=== PATIENT | male | born 1990 | race Caucasian/White ===

== ENCOUNTER 2021-03-21 14:42 | Observation (INO) ==
[2021-03-21 16:22] LABS: Basophils # (auto) 0.03 K/uL (0-0.2); Basophils % (auto) 0.3 %; Eosinophils # (auto) 0.84 K/uL (0-0.5); Eosinophils % (auto) 7.1 %; Hematocrit (blood only) 45.6 % (42-52); Hemoglobin 15.7 g/dL (14.0-18.0); Immature Granulocytes # (auto) 0.21 K/uL (0.00-0.02); Immature Granulocytes % (auto) 1.8 %; Lymphocytes # (auto) 1.57 K/uL (1.2-3.4); Lymphocytes % (auto) 13.2 %; Mean Corpuscular Hemoglobin 31.5 pg (25-34); Mean Corpuscular Hgb Conc 34.4 g/dL (32-36); Mean Corpuscular Volume 91.6 fL (80-100); Monocytes # (auto) 1.01 K/uL (0.11-0.59); Monocytes % (auto) 8.5 %; Neutrophils # (auto) 8.19 K/uL (1.4-6.5); Neutrophils % (auto) 69.1 %; Platelet Count 308 K/uL (130-400); RDW Coefficient of Variation 12.9 % (11.5-14.5); RDW Standard Deviation 42.9 fL (36.4-46.3); Red Blood Count 4.98 M/uL (4.7-6.1); White Blood Count 11.85 K/uL (4.8-10.8)
[2021-03-21 16:40] LABS: Albumin Level 4.3 gm/dl (3.4-5.0); BUN Creatinine Ratio 10.8 (10-20); Calcium 9.6 mg/dl (8.5-10.1); Creatinine Clr Calc Pharmacy 82.1 ml/min; Est GFR (African American) 80.2 ml/min; Est GFR (Non-African American) 69.2 ml/min; Potassium 4.1 mmol/L (3.5-5.1)
[2021-03-21 16:49] LABS: Albumin Globulin Ratio 1.2 (0.9-2); Bilirubin,Total 0.7 mg/dl (0.2-1); Globulin 3.6 gm/dl (2.5-4.0); Total Protein 7.9 gm/dl (6.4-8.2)
[2021-03-21] MEDS ORDERED: SODIUM CHLORIDE 0.9% 1000ML 1,000 ML IV ONE (17:17)
--- NOTE | 2021-03-21 17:25 | Emergency Department Note ---
Impression & Plan Terminal ileitis ED Provider Note CHIEF COMPLAINT: Diffuse abdominal pain, nausea/vomiting/diarrhea HISTORY OF PRESENTING ILLNESS: This is a 30-year-old male who presents to the emergency department by private vehicle with complaint of diffuse abdominal pain, nausea, vomiting, and diarrhea that has been ongoing for the past 2 weeks. Patient states his symptoms started after eating chili at a restaurant which he thought may have given him food poisoning, but his symptoms have not gotten any better. He states that he is having 10-15 episodes of watery diarrhea a day. He denies any bloody or black stools. He has had vomiting intermittently but overall has been able to tolerate food and fluids. He denies any bloody or bilious emesis. He denies any fevers or chills. He denies urinary symptoms. He states that the abdominal pain is diffuse but mostly in the center around his bellybutton, crampy in nature and occasionally very sharp, has been intermittent, but has been constant today and he rates the pain 9/10. He has tried taking Tums without much improvement. He states that he tried to get an appointment with his primary care provider but they could not get him in until next month and his symptoms got worse today which prompted him to come to the ER. He denies any chest pain, chest tightness, shortness of breath, dizziness or syncope, back pain, headaches, or unusual rash. REVIEW OF SYSTEMS: A complete 10 point review of systems was reviewed with the patient with pertinent positives and negatives as per history of present illness. All else were negative. PAST MEDICAL HISTORY: No significant past medical or surgical history SOCIAL HISTORY: Lives at home, he is a current everyday smoker ALLERGIES: Reviewed in chart and with the patient PHYSICAL EXAM: CONSTITUTIONAL: Pleasant and cooperative. Nontoxic-appearing and in no acute distress. Well appearing and well nourished. HEENT: Normocephalic, atraumatic. Pharynx normal. NECK: Supple, full active range of motion without discomfort. RESPIRATORY: Clear to auscultation bilaterally with no wheezing, crackles, rhonchi or stridor. Equal expansion bilaterally. CARDIOVASCULAR: Regular rate and rhythm with no murmurs, rubs or gallops. Normal peripheral perfusion. No edema. GASTROINTESTINAL: Diffuse tenderness to palpation throughout the abdomen, most tender in the periumbilical region and right lower quadrant, no rebound tenderness or guarding. Abdomen is soft and nondistended. No palpable masses or HSM. Bowel sounds present in all quadrants. No CVA tenderness bilaterally. MUSCULOSKELETAL: Full range of motion of all joints without discomfort. INTEGUMENTARY: No rash or other significant dermatologic conditions noted. NEUROLOGIC: Alert and oriented X 4 with normal affect. Normal strength and sensation in all 4 extremities. Normal speech. Normal gait observed. ED COURSE AND MEDICAL DECISION MAKING: CC: Patient presenting with complaint of diffuse abdominal pain, nausea/vomiting/diarrhea DIFFERENTIAL DIAGNOSIS: Includes, but not limited to gastroenteritis, infectious colitis, C. difficile infection, appendicitis, mesenteric adenitis, infections, diverticulitis, UTI, small bowel obstruction, inflammatory bowel disease, renal colic, PUD, pancreatitis, biliary pathology, hernia, volvulus, constipation, as well as other pathologies. INTERPRETATION OF LABS: Mild leukocytosis, no anemia, normal platelets, no significant electrolyte abnormalities, normal renal function, normal liver enzymes and lipase. UA negative. C. difficile negative. Stool culture pending. MEDICATION RECONCILIATION: I attest that I have personally reviewed the patient's current medication list. INITIAL VITAL SIGNS REVIEW: I reviewed the patient's initial vital signs and interpret them as follows: T: Afebrile; BP: Normotensive; HR: Within normal limits; RR: Within normal limits; Pulse Ox: Within normal limits on room air. MDM SUMMARY: Patient was evaluated at bedside, history and physical exam performed. Patient is alert and oriented, in no acute distress, resting calmly in stre tcher. He is afebrile and nontoxic-appearing and hemodynamically stable. Abdomen is tender to palpation diffusely, but most tender towards the periumbilical and right side of the abdomen, no acute abdomen. He does not appear to be significantly dehydrated clinically. Orders were placed for labs, UA, C. difficile toxin, stool culture, IV fluid bolus for hydration as precaution, CT abdomen/pelvis with IV contrast to evaluate for abdominal pain and diarrhea. Patient discussed with Dr. Springer, who agrees with my assessment, plan, and disposition. Labs and imaging reviewed, labs were notable for mild leukocytosis, no other significant abnormalities. C. difficile negative. CT imaging reviewed, concerning for bowel wall thickening and mesenteric edema as well as some distended loops of small bowel concerning for developing small bowel obstruction. Normal appendix. Given the findings of a possible bowel obstruction, I did speak with Dr. Angela, general surgery. He reviewed the patient's findings with me and did not feel that the patient had a true bowel obstruction, but was happy to follow with the patient. I requested that the patient be admitted to the hospitalist service, Dr. Anshu lerma, the patient will be admitted. He may benefit from GI consultation as well. Patient reassessed multiple times throughout ED stay, he has remained hemodynamically stable and afebrile and his pain is well controlled. The patient was updated on all results and plan for admission, all questions w ere answered to the best my ability and the patient was comfortable with this plan. The patient was stable at time of admission. The chart was completed utilizing [employer] Speech voice recognition software. Grammatical errors, random word insertions, pronoun errors, and incomplete sentences are an occasional consequence of this system due to software limitations, ambient noise, and hardware issues. Any formal questions or concerns about the content, text, or information contained within the body of this dictation should be directly addressed to the nurse practitioner for clarification. 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 Beliefs That Will Affect Care: None Current Living Situation: Family Feels Safe at Home: Yes Safety Concerns: Feels Safe At This Time Allergies Allergies Allergy/AdvReac Type Severity Reaction Status Date / Time Penicillins Allergy Unknown unknown rx Verified 03/21/21 17:33 as a child Home Meds Home Medications Medication Instructions Recorded Confirmed No Known Home Medications 03/21/21 03/21/21 Results & Data (ED) Vital Signs Vital Signs - 24 hr 03/21/21 15:15 03/21/21 18:45 Temperature 36.2 C L Temperature Source Temporal Artery Scan Pulse Rate 82 Pulse Rate [Finger] 77 Pulse Rhythm [Finger] Regular Pulse Strength [Finger] Normal Respiratory Rate 16 18 Respiratory Effort / Characteristics Non-Labored Spontaneous Respiratory Depth Normal Respiratory Pattern Regular Blood Pressure 138/93 Blood Pressure [Right Arm] 124/69 Blood Pressure Mean 108 Blood Pressure Mean [Right Arm] 87 Blood Pressure Position [Right Arm] Semi-fowlers Pulse Oximetry 98 100 Oxygen Delivery Method Room Air Sepsis Recent Fever Within 48 Hours No Sepsis New/Unexplained Change in Mental Status No Sepsis Action Taken by Nursing No Action Required Laboratory Data Result diagrams: 03/21/21 16:10 03/21/21 16:10 Lab Results 03/21/21 03/21/21 03/21/21 Range/Units 16:10 16:10 20:40 WBC 11.85 H (4.8-10.8) K/uL RBC 4.98 (4.7-6.1) M/uL Hgb 15.7 (14.0-18.0) g/dL Hct 45.6 (42-52) % MCV 91.6 (80-100) fL MCH 31.5 (25-34) pg MCHC 34.4 (32-36) g/dL RDW Std Deviation 42.9 (36.4-46.3) fL RDW Coeff of Tal 12.9 (11.5-14.5) % Plt Count 308 (130-400) K/uL MPV 10.0 (7.4-10.4) fL Immature Gran % (Auto) 1.8 % Neut % (Auto) 69.1 % Lymph % (Auto) 13.2 % [place] % (Auto) 8.5 % Eos % (Auto) 7.1 % Baso % (Auto) 0.3 % Neut # (Auto) 8.19 H (1.4-6.5) K/uL Lymph # (Auto) 1.57 (1.2-3.4) K/uL [place] # (Auto) 1.01 H (0.11-0.59) K/uL Eos # (Auto) 0.84 H (0-0.5) K/uL Baso # (Auto) 0.03 (0-0.2) K/uL Immature Gran # (Auto) 0.21 H (0.00-0.02) K/uL Sodium 138 (136-145) mmol/L Potassium 4.1 (3.5-5.1) mmol/L Chloride 108 H (98-107) mmol/L Carbon Dioxide 29 (21-32) mmol/L Anion Gap 1.0 L (3-11) BUN 15 (7-18) mg/dl Creatinine 1.37 (0.6-1.4) mg/dl Est Cr Clr Drug Dosing 82.1 ml/min Est GFR ( Amer) 80.2 ml/min Est GFR (Non-Af Amer) 69.2 ml/min BUN/Creatinine Ratio 10.8 (10-20) Glucose 97 (70-99) mg/dl Calcium 9.6 (8.5-10.1) mg/dl Total Bilirubin 0.7 (0.2-1) mg/dl AST 19 (15-37) U/L ALT 33 (12-78) U/L Alkaline Phosphatase 89 (45-117) U/L Total Protein 7.9 (6.4-8.2) gm/dl Albumin 4.3 (3.4-5.0) gm/dl Globulin 3.6 (2.5-4.0) gm/dl Albumin/Globulin Ratio 1.2 (0.9-2) Lipase 98 (73-393) U/L COVID-19 Eval Order Covid19 at [facility] SARS-CoV-2 (PCR) (Negative) 03/21/21 Range/Units 20:40 WBC (4.8-10.8) K/uL RBC (4.7-6.1) M/uL Hgb (14.0-18.0) g/dL Hct (42-52) % MCV (80-100) fL MCH (25-34) pg MCHC (32-36) g/dL RDW Std Deviation (36.4-46.3) fL RDW Coeff of Tal (11.5-14.5) % Plt Count (130-400) K/uL MPV (7.4-10.4) fL Immature Gran % (Auto) % Neut % (Auto) % Lymph % (Auto) % [place] % (Auto) % Eos % (Auto) % Baso % (Auto) % Neut # (Auto) (1.4-6.5) K/uL Lymph # (Auto) (1.2-3.4) K/uL [place] # (Auto) (0.11-0.59) K/uL Eos # (Auto) (0-0.5) K/uL Baso # (Auto) (0-0.2) K/uL Immature Gran # (Auto) (0.00-0.02) K/uL Sodium (136-145) mmol/L Potassium (3.5-5.1) mmol/L Chloride (98-107) mmol/L Carbon Dioxide (21-32) mmol/L Anion Gap (3-11) BUN (7-18) mg/dl Creatinine (0.6-1.4) mg/dl Est Cr Clr Drug Dosing ml/min Est GFR ( Amer) ml/min Est GFR (Non-Af Amer) ml/min BUN/Creatinine Ratio (10-20) Glucose (70-99) mg/dl Calcium (8.5-10.1) mg/dl Total Bilirubin (0.2-1) mg/dl AST (15-37) U/L ALT (12-78) U/L Alkaline Phosphatase (45-117) U/L Total Protein (6.4-8.2) gm/dl Albumin (3.4-5.0) gm/dl Globulin (2.5-4.0) gm/dl Albumin/Globulin Ratio (0.9-2) Lipase (73-393) U/L COVID-19 Eval Order SARS-CoV-2 (PCR) NEGATIVE (Negative) Administered Medications Potassium Chloride/Sodium Chloride (Normal Saline W/20 Meq Kcl) 20 meq in 1,000 mls @ 100 mls/hr IV .Q10H SILVIA Stop: 04/20/21 22:14 Last Admin: 03/21/21 22:36 Dose: 100 mls/hr Documented by: [id number] Discontinued Medications Sodium Chloride (Nss 1000ml) 1,000 mls @ 999 mls/hr IV .Q1H1M ONE Stop: 03/21/21 18:17 Last Infusion: 03/21/21 19:55 Dose: 0 mls/hr Documented by: [id number] Admin: 03/21/21 18:39 Dose: 999 mls/hr Documented by: [id number] Ioversol (Optiray 320 100ml) 95 ml IV ONCE ONE Stop: 03/21/21 18:27 Last Admin: 03/21/21 18:26 Dose: 95 ml Documented by: [id number] Imaging Data Radiologist's Impression: Abdomen/Pelvis CT 03/21/21 17:[address] WITH IV CONTRAST CT DOSE: 267.36 mGy.cm HISTORY: mid abd pain, n/v/d TECHNIQUE: Multiaxial CT images of the abdomen and pelvis were performed following the use of intravenous contrast. A dose lowering technique was ut ilized adhering to the principles of ALARA. COMPARISON STUDY: None. FINDINGS: The lung bases are clear. No pneumoperitoneum. No pneumatosis. No frac tures within the visualized osseous structures. The liver, gallbladder, pancreas, spleen, adrenal glands, and kidneys are unremarkable. No hydronephrosis. The main portal vein is patent. No retroperitoneal lymphadenopathy. Subcentimeter mesenteric lymph nodes do not meet CT criteria for pathologic involvement. The bladder is unremarkable. Mildly dilated gas- filled loops of jejunum within the left side the abdomen. These measure up to 3.4 cm in diameter. Normal appendix. Thickening versus underdistention of the ileal loops within the right lower quadrant. There appears a mild mesenteric edema. These ileal loops are decompressed. No clear transition point between the mildly dilated jejunal loops and decompressed ileal loops. Therefore, this could represent an ileus versus low-grade partial small bowel obstruction from the thickened ileal loops. Trace pelvic free fluid. IMPRESSION: 1. Underdistended ileal loops within the right lower quadrant and lower abdomen which appear to be slightly thickened and demonstrate mild surrounding mese nteric edema. The more proximal jejunal loops within the left side of the abdomen are gas-filled and mildly dilated. There is no clear transition point. Therefore, these findings could represent a nonspecific ileitis resulting in a partial small bowel obstruction given the distended jejunal loops. Consider follow-up abdomen and pelvis CT with the patient's symptoms continued to progress to exclude the possibility of a bowel obstruction. 2. Normal appendix. 3. No hydronephrosis. ACT 112: Negative or not required by law. Electronically signed by: Jim Godoy M.D. 03/21/2021 6:45 PM Discharge Plan Visit Data Chief Complaint: Abdominal Pain Stated Complaint: BAD ABD PAIN FOR TWO WEEKS ED Provider: Jack Springer ED Midlevel Provider: Radha Huynh Discharge Problem: Terminal ileitis Patient Disposition: Admitted As Inpatient Condition: Good Discharge Instructions Interventions: ED Discharge Assessment Last Done: 03/21/21 21:58 Discharge Problem: Terminal ileitis Qualifiers: Digestive disease complication type: unspecified complication Qualified Code(s): K50.019 - Crohn's disease of small intestine with unspecified complications
[2021-03-21] MEDS ORDERED: OPTIRAY 320 100ml IV ONE (18:26)
--- NOTE | 2021-03-21 18:46 | CT Scan Report ---
ABDOMEN AND PELVIS CT WITH IV CONTRAST CT DOSE: 267.36 mGy.cm HISTORY: mid abd pain, n/v/d TECHNIQUE: Multiaxial CT images of the abdomen and pelvis were performed following the use of intrave nous contrast. A dose lowering technique was utilized adhering to the principles of ALARA. COMPARISON STUDY: None. FINDINGS: The lung bases are clear. No pneumoperitoneum. No pneumatosis. No fractures within the visu alized osseous structures. The liver, gallbladder, pancreas, spleen, adrenal glands, and kidneys are unremarkable. No hydronephrosis. The main portal vein is patent. No retroperitoneal lymphadenopathy. Subcentimeter mesenteric lymph nodes do not meet CT criteria for pathologic involvement. The bladder is unremarkable. Mildly dilated gas-filled loops of jejunum within the left side the abdomen. These m easure up to 3.4 cm in diameter. Normal appendix. Thickening versus underdistention of the ileal loop s within the right lower quadrant. There appears a mild mesenteric edema. These ileal loops are decom pressed. No clear transition point between the mildly dilated jejunal loops and decompressed ileal lo ops. Therefore, this could represent an ileus versus low-grade partial small bowel obstruction from t he thickened ileal loops. Trace pelvic free fluid. IMPRESSION: 1. Underdistended ileal loops within the right lower quadrant and lower abdomen which appear to be sl ightly thickened and demonstrate mild surrounding mesenteric edema. The more proximal jejunal loops w ithin the left side of the abdomen are gas-filled and mildly dilated. There is no clear transition po int. Therefore, these findings could represent a nonspecific ileitis resulting in a partial small bow el obstruction given the distended jejunal loops. Consider follow-up abdomen and pelvis CT with the p atient's symptoms continued to progress to exclude the possibility of a bowel obstruction. 2. Normal appendix. 3. No hydronephrosis. ACT 112: Negative or not required by law. Electronically signed by: Jim Godoy M.D. 03/21/2021 6:45 PM
--- NOTE | 2021-03-21 20:13 | Surgery Consultation ---
Date of Consultation March 21, 2021 Assessment & Plan (1) Terminal ileitis: 30-year-old male with 2-week history of abdominal pain with nausea, vomiting, and diarrhea with CT findings consistent with a terminal ileitis. Given the fact that he is passing flatus and having watery bowel movements I do not feel this represents an obstruction. This may be of infectious or inflammatory etiology, possibly Crohn's. No surgical intervention indicated Disposition per emergency department medicine Recommend GI evaluation as inpatient or outpatient Surgery will follow peripherally (2) Nausea & vomiting: (3) Diarrhea: (4) Abdominal pain: History of Present Illness History of Present Illness 30-year-old male presented to the emergency department with abdominal pain, nausea, and diarrhea. This started about 2 weeks ago after eating some chili. He typically does not tolerate hamburger meat very well. He thought he had food poisoning. The symptoms persisted. Today his pain was much worse. The diarrhea has been watery and 10-15 movements per day. He reports a history of intermittent bloating in the past. He denies any fevers. No sick contacts. No personal or family history of Crohn's disease. No prior GI evaluations or colonoscopies. He is otherwise healthy. No prior abdominal surgery. Allergies Allergy/AdvReac Type Severity Reaction Status Date / Time Penicillins Allergy Unknown unknown rx Verified 03/21/21 17:33 as a child Home Medications Medication Instructions Recorded Confirmed Type No Known Home Medications 03/21/21 03/21/21 History Patient History Medical History (Updated 03/21/21 @ 20:12 by David Angela DO, FACS) Abdominal pain Diarrhea Nausea & vomiting No chronic diseases present Terminal ileitis Surgical History No significant past surgical history Social History Smoking Status: Current every day smoker Tobacco Type: Cigarettes Preferred Language: Latvian Feels Safe at Home: Yes Review of Systems Review of Systems: All systems reviewed & are unremarkable except as noted in HPI & below Physical Exam Constitutional: WD/WN, vitals as above no acute distress Respiratory: normal respiratory effort, lungs clear to auscultation Cardiovascular: RRR, no murmur, no edema Gastrointestinal (Abdomen): normal bowel sounds, soft, nontender, no hepatosplenomegaly Results & Data ([facility]) Vital Signs (Past 12 Hours) Vital Signs Temp Pulse Pulse Resp BP BP Pulse Ox 03/21/21 18:45 77 18 124/69 100 03/21/21 15:15 36.2 C L 82 16 138/93 98 Laboratory Results Laboratory Results - last 24 hr 03/21/21 03/21/21 16:10 16:10 WBC 11.85 H RBC 4.98 Hgb 15.7 Hct 45.6 MCV 91.6 MCH 31.5 MCHC 34.4 RDW Std Deviation 42.9 RDW Coeff of Tal 12.9 Plt Count 308 MPV 10.0 Immature Gran % (Auto) 1.8 Neut % (Auto) 69.1 Lymph % (Auto) 13.2 [place] % (Auto) 8.5 Eos % (Auto) 7.1 Baso % (Auto) 0.3 Neut # (Auto) 8.19 H Lymph # (Auto) 1.57 [place] # (Auto) 1.01 H Eos # (Auto) 0.84 H Baso # (Auto) 0.03 Immature Gran # (Auto) 0.21 H Sodium 138 Potassium 4.1 Chloride 108 H Carbon Dioxide 29 Anion Gap 1.0 L BUN 15 Creatinine 1.37 Est Cr Clr Drug Dosing 82.1 Est GFR ( Amer) 80.2 Est GFR (Non-Af Amer) 69.2 BUN/Creatinine Ratio 10.8 Glucose 97 Calcium 9.6 Total Bilirubin 0.7 AST 19 ALT 33 Alkaline Phosphatase 89 Total Protein 7.9 Albumin 4.3 Globulin 3.6 Albumin/Globulin Ratio 1.2 Lipase 98 Diagnostic Findings I personally reviewed and interpreted the CT scan and feel this represents an ileitis with no evidence of obstruction. ABDOMEN AND PELVIS CT WITH IV CONTRAST CT DOSE: 267.36 mGy.cm HISTORY: mid abd pain, n/v/d TECHNIQUE: Multiaxial CT images of the abdomen and pelvis were performed following the use of intravenous contrast. A dose lowering technique was utilized adhering to the principles of ALARA. COMPARISON STUDY: None. FINDINGS: The lung bases are clear. No pneumoperitoneum. No pneumatosis. No fractures within the visualized osseous structures. The liver, gallbladder, pancreas, spleen, adrenal glands, and kidneys are unremarkable. No hydronephrosis. The main portal vein is patent. No retroperitoneal lymphadenopathy. Subcentimeter mesenteric lymph nodes do not meet CT criteria for pathologic involvement. The bladder is unremarkable. Mildly dilated gas- filled loops of jejunum within the left side the abdomen. These measure up to 3.4 cm in diameter. Normal appendix. Thickening versus underdistention of the ileal loops within the right lower quadrant. There appears a mild mesenteric edema. These ileal loops are decompressed. No clear transition point between the mildly dilated jejunal loops and decompressed ileal loops. Therefore, this could represent an ileus versus low-grade partial small bowel obstruction from the thickened ileal loops. Trace pelvic free fluid. IMPRESSION: 1. Underdistended ileal loops within the right lower quadrant and lower abdomen which appear to be slightly thickened and demonstrate mild surrounding mesenteric edema. The more proximal jejunal loops within the left side of the abdomen are gas-filled and mildly dilated. There is no clear transition point. Therefore, these findings could represent a nonspecific ileitis resulting in a partial small bowel obstruction given the distended jejunal loops. Consider follow-up abdomen and pelvis CT with the patient's symptoms continued to progress to exclude the possibility of a bowel obstruction. 2. Normal appendix. 3. No hydronephrosis. PG Care Time/CCT Total # of Minutes Spent Total Time Spent with Patient: Total time spent is greater than 50% in coordination of care (as documented) at patient's floor/unit and/or counseling patient: Coding Level of Care Code 21649 Office/OBS Consult Lvl 3 Diagnoses Terminal ileitis K50.00 Nausea & vomiting R11.2 Diarrhea R19.7 Abdominal pain R10.9
[2021-03-21 21:56] LABS: Appearance Urine Clear (Clear); Bilirubin Urine Negative (Negative); Blood Urine Negative (Negative); Color Urine Yellow; Glucose Urine UA Negative (Negative); Ketones Urine Trace (Negative); Leukocyte Esterase Urine Negative (Negative); Nitrite Urine Negative (Negative); Protein Urine Negative (Negative); Specific Gravity Urine > 1.045 (1.000-1.030); Urobilinogen Urine Negative (Negative); pH Urine 5.5 (4.5-7.5)
[2021-03-21] MEDS ORDERED: ACETAMINOPHEN 325 MG TAB PO PRN (22:15)
[2021-03-21] MEDS ORDERED: ONDANSETRON INJ 2 MG/ML 2 ML VIAL IV PRN (22:15)
[2021-03-21] MEDS: NSS + 20MEQ KCL 20 MEQ/1,000 ML BAG IV SCH (22:36)
--- NOTE | 2021-03-21 22:45 | History & Physical Report ---
Date of Service March 21, 2021 Assessment & Plan (1) Terminal ileitis: Plan: Terminal ileitis/abdominal pain/nausea and vomiting/diarrhea- Patient has had intermittent symptoms over the past 2 weeks, worsened acutely on the day of admission Placed on a full liquid diet NSS + KCl 20 mEq 100 mils per hour x1 L Zofran 4 mg IV every 6 hours as needed Stool culture and stool for C. difficile studies pending Seen by general surgery in the ED, and agrees no surgical intervention necessary (2) Abdominal pain: Plan: See above (3) Nausea & vomiting: Plan: See above (4) Diarrhea: Plan: See above Admission and Anticipated Discharge Date Admission Date: March 21, 2021 History of Present Illness Chief Complaint: The patient presents to the emergency department with complaint of 2 weeks of intermittent generalized abdominal pain, nausea, vomiting and diarrhea, with worsening over the past 24 hours Primary Care Provider: NO PCP The patient is a 30-year-old male with no significant past medical history, who presents to the emergency department symptoms as noted above. The symptoms have intermittently improved, but did worsen over the past 24 hours. His last bowel movement was while he was in the ED. He has had no previous occurrence of the symptoms prior to this 2-week episode. He has no sick contacts, and denies any recent travel. Allergies Allergy/AdvReac Type Severity Reaction Status Date / Time Penicillins Allergy Unknown unknown rx Verified 03/21/21 17:33 as a child Home Medications Medication Instructions Recorded Confirmed Type No Known Home Medications 03/21/21 03/21/21 History Past Med/Surg History Medical History (Updated 03/22/21 @ 00:12 by NICOLAS Craft) Abdominal pain Diarrhea Nausea & vomiting No chronic diseases present Terminal ileitis Surgical History No significant past surgical history Social History Smoking Status: Never smoker Tobacco Type: Cigarettes Hx Alcohol Use: Yes Alcohol type: beer Hx Substance Use: No Preferred Language: Wallisian Communication Ability: Effective Chemistry Lecturer Required: No Beliefs That Will Affect Care: None Current Living Situation: Family Feels Safe at Home: Yes Safety Concerns: Feels Safe At This Time Review of Systems Review of Systems: The patient denies chest pain, palpitations, shortness of breath, dyspnea on exertion, cough, lower extremity swelling, sore throat, fevers, chills, sweats, weight change, fatigue, blood in urine or stool, dysuria, urinary frequency or urgency, lightheadedness, dizziness, headache, memory loss, loss of consciousness, rash, abnormal bruising or bleeding, imbalance, focal or generalized weakness, numbness or tingling in arms or legs, generalized arthralgias or myalgias, back or neck pain, or night sweats. The review of systems is otherwise negative other than for that already noted above, and at least 10 systems have been reviewed. Physical Exam Physical Exam: The patient is awake, alert and oriented 3, well developed and well nourished, normocephalic and atraumatic, lying in bed and in no acute distress. HEENT--PERRL, EOMI, mucous membranes and oropharynx mildly dry. Neck--supple. No JVD. No bruits. Thyroid normal, trachea midline, no adenopathy. Heart--normal S1 and S2. No murmurs, rubs or gallops. Lungs--clear bilaterally, no respiratory distress, no accessory muscle use. Abdomen--normal bowel sounds and soft. Nontender. Nondistended, no hernias or masses, no organomegaly. Extremities--no cyanosis or clubbing. No edema. Dermatologic--normal skin turgor, normal color, no abnormal lymph nodes, no rash. Neurologic--cranial nerves II through XII grossly intact. Rheumatologic--normal range of motion. Psychiatric--normal affect. Results & Data Results & Data ([facility]) Vital Signs (Past 12 Hours) Vital Signs Temp Pulse Pulse Resp BP BP Pulse Ox 03/21/21 22:16 97.9 F 83 15 132/82 98 03/21/21 21:31 79 16 118/80 99 03/21/21 18:45 77 18 124/69 100 03/21/21 15:15 97.2 F L 82 16 138/93 98 Laboratory Results Laboratory Results WBC 11.85 K/uL (4.8-10.8) H 03/21/21 16:10 RBC 4.98 M/uL (4.7-6.1) 03/21/21 16:10 Hgb 15.7 g/dL (14.0-18.0) 03/21/21 16:10 Hct 45.6 % (42-52) 03/21/21 16:10 MCV 91.6 fL (80-100) 03/21/21 16:10 MCH 31.5 pg (25-34) 03/21/21 16:10 MCHC 34.4 g/dL (32-36) 03/21/21 16:10 RDW Std Deviation 42.9 fL (36.4-46.3) 03/21/21 16:10 RDW Coeff of Tal 12.9 % (11.5-14.5) 03/21/21 16:10 Plt Count 308 K/uL (130-400) 03/21/21 16:10 MPV 10.0 fL (7.4-10.4) 03/21/21 16:10 Immature Gran % (Auto) 1.8 % 03/21/21 16:10 Neut % (Auto) 69.1 % 03/21/21 16:10 Lymph % (Auto) 13.2 % 03/21/21 16:10 [place] % (Auto) 8.5 % 03/21/21 16:10 Eos % (Auto) 7.1 % 03/21/21 16:10 Baso % (Auto) 0.3 % 03/21/21 16:10 Neut # (Auto) 8.19 K/uL (1.4-6.5) H 03/21/21 16:10 Lymph # (Auto) 1.57 K/uL (1.2-3.4) 03/21/21 16:10 [place] # (Auto) 1.01 K/uL (0.11-0.59) H 03/21/21 16:10 Eos # (Auto) 0.84 K/uL (0-0.5) H 03/21/21 16:10 Baso # (Auto) 0.03 K/uL (0-0.2) 03/21/21 16:10 Immature Gran # (Auto) 0.21 K/uL (0.00-0.02) H 03/21/21 16:10 Sodium 138 mmol/L (136-145) 03/21/21 16:10 Potassium 4.1 mmol/L (3.5-5.1) 03/21/21 16:10 Chloride 108 mmol/L (98-107) H 03/21/21 16:10 Carbon Dioxide 29 mmol/L (21-32) 03/21/21 16:10 Anion Gap 1.0 (3-11) L 03/21/21 16:10 BUN 15 mg/dl (7-18) 03/21/21 16:10 Creatinine 1.37 mg/dl (0.6-1.4) 03/21/21 16:10 Est Cr Clr Drug Dosing 82.1 ml/min 03/21/21 16:10 Est GFR ( Amer) 80.2 ml/min 03/21/21 16:10 Est GFR (Non-Af Amer) 69.2 ml/min 03/21/21 16:10 BUN/Creatinine Ratio 10.8 (10-20) 03/21/21 16:10 Glucose 97 mg/dl (70-99) 03/21/21 16:10 Calcium 9.6 mg/dl (8.5-10.1) 03/21/21 16:10 Total Bilirubin 0.7 mg/dl (0.2-1) 03/21/21 16:10 AST 19 U/L (15-37) 03/21/21 16:10 ALT 33 U/L (12-78) 03/21/21 16:10 Alkaline Phosphatase 89 U/L (45-117) 03/21/21 16:10 Total Protein 7.9 gm/dl (6.4-8.2) 03/21/21 16:10 Albumin 4.3 gm/dl (3.4-5.0) 03/21/21 16:10 Globulin 3.6 gm/dl (2.5-4.0) 03/21/21 16:10 Albumin/Globulin Ratio 1.2 (0.9-2) 03/21/21 16:10 Lipase 98 U/L (73-393) 03/21/21 16:10 Urine Color Yellow 03/21/21 21:31 Urine Appearance Clear (Clear) 03/21/21 21:31 Urine pH 5.5 (4.5-7.5) 03/21/21 21:31 Ur Specific [place] > 1.045 (1.000-1.030) H 03/21/21 21:31 Urine Protein Negative (Negative) 03/21/21 21:31 Urine Glucose (UA) Negative (Negative) 03/21/21 21:31 Urine Ketones Trace (Negative) H 03/21/21 21:31 Urine Blood Negative (Negative) 03/21/21 21:31 Urine Nitrite Negative (Negative) 03/21/21 21:31 Urine Bilirubin Negative (Negative) 03/21/21 21:31 Urine Urobilinogen Negative (Negative) 03/21/21 21:31 Ur Leukocyte Esterase Negative (Negative) 03/21/21 21:31 Stl C. diff Tox B Gene Negative Cdiff Gene (Neg) 03/21/21 21:31 COVID-19 Eval Order Covid19 at [facility] 03/21/21 20:40 SARS-CoV-2 (PCR) NEGATIVE (Negative) 03/21/21 20:40 Impressions Abdomen/Pelvis CT 03/21/21 17:[address] WITH IV CONTRAST CT DOSE: 267.36 mGy.cm HISTORY: mid abd pain, n/v/d TECHNIQUE: Multiaxial CT images of the abdomen and pelvis were performed following the use of intravenous contrast. A dose lowering technique was utilized adhering to the principles of ALARA. COMPARISON STUDY: None. FINDINGS: The lung bases are clear. No pneumoperitoneum. No pneumatosis. No fractures within the visualized osseous structures. The liver, gallbladder, pancreas, spleen, adrenal glands, and kidneys are unremarkable. No hydronephrosis. The main portal vein is patent. No retroperitoneal lymphadenopathy. Subcentimeter mesenteric lymph nodes do not meet CT criteria for pathologic involvement. The bladder is unremarkable. Mildly dilated gas- filled loops of jejunum within the left side the abdomen. These measure up to 3.4 cm in diameter. Normal appendix. Thickening versus underdistention of the ileal loops within the right lower quadrant. There appears a mild mesenteric edema. These ileal loops are decompressed. No clear transition point between the mildly dilated jejunal loops and decompressed ileal loops. Therefore, this could represent an ileus versus low-grade partial small bowel obstruction from the thickened ileal loops. Trace pelvic free fluid. IMPRESSION: 1. Underdistended ileal loops within the right lower quadrant and lower abdomen which appear to be slightly thickened and demonstrate mild surrounding mesenteric edema. The more proximal jejunal loops within the left side of the abdomen are gas-filled and mildly dilated. There is no clear transition point. Therefore, these findings could represent a nonspecific ileitis resulting in a partial small bowel obstruction given the distended jejunal loops. Consider follow-up abdomen and pelvis CT with the patient's symptoms continued to progress to exclude the possibility of a bowel obstruction. 2. Normal appendix. 3. No hydronephrosis. ACT 112: Negative or not required by law. Electronically signed by: Jim Godoy M.D. 03/21/2021 6:45 PM Code Status & VTE Plan Code Status Full code VTE Prophylaxis Plan VTE Prophylaxis will be ordered: Yes PG Care Time/CCT Total # of Minutes Spent Total Time Spent with Patient: Total time spent is greater than 50% in coordination of care (as documented) at patient's floor/unit and/or counseling patient: Coding Level of Care Code INT OBSERVATION CARE 70M LVL 3 Diagnoses Terminal ileitis K50.019 Digestive disease complication type: unspecified complication Abdominal pain R10.9 Nausea & vomiting R11.2 Diarrhea R19.7 (1) Terminal ileitis Digestive disease complication type: unspecified complication Qualified Code(s): K50.019 - Crohn's disease of small intestine with unspecified complications
[2021-03-22] MEDS: NSS + 20MEQ KCL 20 MEQ/1,000 ML BAG IV SCH (06:29)
[2021-03-22 06:59] LABS: Basophils # (auto) 0.05 K/uL (0-0.2); Basophils % (auto) 0.4 %; Eosinophils # (auto) 3.99 K/uL (0-0.5); Hematocrit (blood only) 41.4 % (42-52); Immature Granulocytes # (auto) 0.12 K/uL (0.00-0.02); Immature Granulocytes % (auto) 0.9 %; Lymphocytes # (auto) 2.18 K/uL (1.2-3.4); Lymphocytes % (auto) 16.9 %; Mean Corpuscular Hemoglobin 31.3 pg (25-34); Mean Corpuscular Hgb Conc 33.8 g/dL (32-36); Mean Corpuscular Volume 92.4 fL (80-100); Mean Platelet Volume 10.1 fL (7.4-10.4); Monocytes # (auto) 1.03 K/uL (0.11-0.59); Neutrophils # (auto) 5.51 K/uL (1.4-6.5); Neutrophils % (auto) 42.8 %; Platelet Count 281 K/uL (130-400); RDW Coefficient of Variation 13.2 % (11.5-14.5); RDW Standard Deviation 44.7 fL (36.4-46.3); Red Blood Count 4.48 M/uL (4.7-6.1); White Blood Count 12.88 K/uL (4.8-10.8)
[2021-03-22 07:17] LABS: Albumin Level 3.3 gm/dl (3.4-5.0); BUN Creatinine Ratio 10.9 (10-20); Calcium 8.7 mg/dl (8.5-10.1); Est GFR (African American) 93.2 ml/min; Est GFR (Non-African American) 80.4 ml/min
[2021-03-22 07:19] LABS: Bilirubin,Total 0.8 mg/dl (0.2-1); Globulin 3.4 gm/dl (2.5-4.0); Total Protein 6.7 gm/dl (6.4-8.2)
--- NOTE | 2021-03-22 09:25 | XRay Report ---
[facility] CLINICAL HISTORY: Ileitis COMPARISON STUDY: CT of the abdomen and pelvis March 21, 2021. FINDINGS: The bowel gas pattern is normal. Pelvic calcifications reflect phleboliths. There is no everardo dence for free air on this supine exam. Appendix is gas-filled. IMPRESSION: No evidence for a bowel obstruction. ACT 112: Negative or not required by law. Electronically signed by: Robby Rich M.D. 03/22/2021 9:23 AM
--- NOTE | 2021-03-30 16:48 | Discharge Summary ---
Date of Service March 22, 2021 Admission HPI Per Admitting Provider Chief Complaint: The patient presents to the emergency department with complaint of 2 weeks of intermittent generalized abdominal pain, nausea, vomiting and diarrhea, with worsening over the past 24 hours Primary Care Provider: NO PCP The patient is a 30-year-old male with no significant past medical history, who presents to the emergency department symptoms as noted above. The symptoms have intermittently improved, but did worsen over the past 24 hours. His last bowel movement was while he was in the ED. He has had no previous occurrence of the symptoms prior to this 2-week episode. He has no sick contacts, and denies any recent travel. Admission Exam Per Admitting Provider The patient is awake, alert and oriented 3, well developed and well nourished, normocephalic and atraumatic, lying in bed and in no acute distress. HEENT--PERRL, EOMI, mucous membranes and oropharynx mildly dry. Neck--supple. No JVD. No bruits. Thyroid normal, trachea midline, no adenopathy. Heart--normal S1 and S2. No murmurs, rubs or gallops. Lungs--clear bilaterally, no respiratory distress, no accessory muscle use. Abdomen--normal bowel sounds and soft. Nontender. Nondistended, no hernias or masses, no organomegaly. Extremities--no cyanosis or clubbing. No edema. Dermatologic--normal skin turgor, normal color, no abnormal lymph nodes, no rash. Neurologic--cranial nerves II through XII grossly intact. Rheumatologic--normal range of motion. Psychiatric--normal affect. Principal Diagnosis Terminal ileitis Discharge Exam GENERAL : No acute distress EYES: No icterus, gaze conjugate NOSE: No evidence of epistaxis MOUTH: No lesions or candidiasis NECK: Supple LUNGS: CTA B/L, no wheezes, rales or rhonchi HEART: Regular, rate controlled ABDOMEN: Soft, NT, ND, BS Present EXTREMITIES: No LE edema, pedal pulses intact NEURO: A&OX3 Discharge Data Allergies Allergy/AdvReac Type Severity Reaction Status Date / Time Penicillins Allergy Unknown unknown rx Verified 03/28/21 15:37 as a child Consultations 03/21/21 20:44 ED Decision to Admit Stat 03/22/21 15:25 Consult [facility] curriculum director Routine Ordered Studies 03/21/21 17:17 CT abd pelvis IV con only Stat Abdomen/Pelvis CT 03/21/21 17:[address] WITH IV CONTRAST CT DOSE: 267.36 mGy.cm HISTORY: mid abd pain, n/v/d TECHNIQUE: Multiaxial CT images of the abdomen and pelvis were performed following the use of intravenous contrast. A dose lowering technique was utilized adhering to the principles of ALARA. COMPARISON STUDY: None. FINDINGS: The lung bases are clear. No pneumoperitoneum. No pneumatosis. No frac tures within the visualized osseous structures. The liver, gallbladder, pancreas, spleen, adrenal glands, and kidneys are unremarkable. No hydronephrosis. The main portal vein is patent. No retroperitoneal lymphadenopathy. Subcentimeter mesenteric lymph nodes do not meet CT criteria for pathologic involvement. The bladder is unremarkable. Mildly dilated gas- filled loops of jejunum within the left side the abdomen. These measure up to 3.4 cm in diameter. Normal appendix. Thickening versus underdistention of the ileal loops within the right lower quadrant. There appears a mild mesenteric edema. These ileal loops are decompressed. No clear transition point between the mildly dilated jejunal loops and decompressed ileal loops. Therefore, this could represent an ileus versus low-grade partial small bowel obstruction from the thickened ileal loops. Trace pelvic free fluid. IMPRESSION: 1. Underdistended ileal loops within the right lower quadrant and lower abdomen which appear to be slightly thickened and demonstrate mild surrounding mesenteric edema. The more proximal jejunal loops within the left side of the abdomen are gas-filled and mildly dilated. There is no clear transition point. Therefore, these findings could represent a nonspecific ileitis resulting in a partial small bowel obstruction given the distended jejunal loops. Consider follow-up abdomen and pelvis CT with the patient's symptoms continued to progress to exclude the possibility of a bowel obstruction. 2. Normal appendix. 3. No hydronephrosis. ACT 112: Negative or not required by law. Electronically signed by: Jim Godoy M.D. 03/21/2021 6:45 PM [facility] X-Ray 03/22/21 08:54 KUB CLINICAL HISTORY: Ileitis COMPARISON STUDY: CT of the abdomen and pelvis March 21, 2021. FINDINGS: The bowel gas pattern is normal. Pelvic calcifications reflect phleboliths. There is no evidence for free air on this supine exam. Appendix is gas-filled. IMPRESSION: No evidence for a bowel obstruction. ACT 112: Negative or not required by law. Electronically signed by: Robby Rich M.D. 03/22/2021 9:23 AM Hospital Course (1) Terminal ileitis: Terminal ileitis/abdominal pain/nausea and vomiting/diarrhea- Patient has had intermittent symptoms over the past 2 weeks, worsened acutely on the day of admission Placed on a full liquid diet NSS + KCl 20 mEq 100 mils per hour x1 L Zofran was ordered as needed Stool culture and stool for C. difficile studies pending Seen by general surgery in the ED, and agrees no surgical intervention necessary Patient was advised that they should follow with gastroenterology within the next 2 weeks. Advised to eat a mild diet that is low fiber low-fat. Patient also advised to avoid all tobacco And alcohol products. Patient establish with new primary care physician in early April. (2) Abdominal pain: See above (3) Nausea & vomiting: See above (4) Diarrhea: See above Total Time Total Time Spent Total Time Spent (In Minutes): 35 minutes Discharge Plan Discharge Items Patient Disposition: Home - Self-Care Reason For Visit: ILEITIS Discharge Diagnosis: Terminal ileitis Condition on Discharge: Good Activity: Resume your previous activity Lifting: Gradually increase as tolerated Bathing: No limitations Sexual Activity: When tolerated Exercise/Sports: Gradually increase as tolerated Driving/Machine Use: Resume 1 day after discharge Weightbearing: Full weightbearing Non-emergency contact: Primary Care Provider Call non-emergency contact if: you have any medication questions, your symptoms worsen and you have a fever Follow-up/Referrals: PCP,NO [Physician] - Diet: Low Fiber and Low Fat Addtl Attending Provider Instructions: You were admitted with abdominal pain and found to have inflammation (ileitis) of the portion of the bowel called the terminal ileum. This can be consistent with chronic disease and should be further evaluated by Gastroenterology. You have an appointment in April to establish with a new primary care provider. We are working to move this appointment up if possible. 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 Please keep all appointments as scheduled. Until seen by gastroenterology, you should eat a mild diet that is low fiber and low fat. Avoid all tobacco products. If your pain worsens or you experience worsening diarrhea, avoid over the counter medicines such as Imodium unless cleared by your doctor. If the pain worsens or you begin to have bloody stool, please report to the emergency department for further evaluation. Pending Studies at Discharge: Yes Studies:: Stool cultures Stand-Alone Forms: My [facility] Medications and DC Order Prescriptions: No Action dicyclomine 20 mg tablet 20 mg PO TID PRN (Reason: abdominal cramping) Qty: 15 RF: 0 Discharge Orders: Discharge Order (Routine); Ordered 03/22/21 Ordered By: Bro Sorto/Other Patient Handouts: Preventing Deep Vein Thrombosis Admission Data Admit Date/Time: 03/21/21 20:54 Attending Provider: Baljinder Whiting Admit Provider: Baljinder Whiting Primary Care Provider: Tayla Wagoner Other Providers: Baljinder Whiting Other Interventions: Discharge Summary Assessment (RN) Last Done: 03/22/21 15:50 Supervising Physician Co-Signing Physician Notes Patient seen and examined, chart reviewed, case discussed with Bro Medel PA-C and I agree with the assessment and plan as above except as otherwise noted General: A&Ox3. NAD. Cooperative. HEENT: Atraumatic, normocephalic. Pulm: CTAB A&P. -wheezes, -rales, -rhonchi. Symmetrical chest rise. No increase work of breathing. No respiratory distress. Cardiac: RRR, -mrg. Radial pulses intact and symmetrical. Abdominal: Nontender, nondistended, soft. BS present. All labs and images reviewed Coding Level of Care Code D/C DAY MANAGEMENT >30 MINS Diagnoses Terminal ileitis K50.019 Digestive disease complication type: unspecified complication Abdominal pain R10.9 Nausea & vomiting R11.2 Diarrhea R19.7 Time Spent (min) 35
== END 2021-03-22 16:18 | disposition home or self-care (01) ==
LOC: 3N 14:42 → ED 14:42 → 3N 21:58